=== PATIENT | female | born 1950 | race Two or more races ===

== ENCOUNTER 2024-01-28 11:13 | Inpatient (IN) | payer MEDICARE, OTHER ==
[~2024-01-28] VITALS: Ht 154.9 cm; Wt 54.4 kg
[2024-01-28 11:57] LABS: BASOPHILS % (AUTO) 0.4 % (0.0-2.0); EOSINOPHILS % (AUTO) 0.9 % (0.0-6.0); HEMATOCRIT 35 % (33-45); HEMOGLOBIN 11.5 g/dL (11.5-14.8); LYMPHOCYTES # (AUTO) 1.3 K/uL (0.8-4.8); LYMPHOCYTES % (AUTO) 28.8 % (20.0-44.0); MEAN CORPUSCULAR HEMOGLOBIN 32 PG (26.0-33.0); MEAN CORPUSCULAR HGB CONC 33 g/dl (31.0-36.0); MEAN CORPUSCULAR VOLUME 96 fL (82-100); MONOCYTES % (AUTO) 21.5 % (2.0-12.0); NEUTROPHILS # (AUTO) 2.2 K/uL (1.8-8.9); NEUTROPHILS % (AUTO) 48.4 % (43.0-81.0); PLATELET COUNT (AUTO) 224 K/uL (150-450); RED CELL DISTRIBUTION WIDTH 14.4 % (11.5-15.0); WHITE BLOOD COUNT (AUTO) 4.6 K/uL (4.3-11.0)
[2024-01-28 12:15] LABS: MAGNESIUM 2.2 mg/dL (1.8-2.4)
[2024-01-28 12:16] LABS: CALCIUM, SERUM 8.8 mg/dL (8.5-10.1); CARBON DIOXIDE 28 mmol/L (21-32); CHLORIDE 102 mmol/L (98-107); CREATININE 0.6 mg/dL (0.6-1.3); GLUCOSE 133 mg/dL (74-106); SODIUM SERUM 142 mmol/L (136-145); UREA NITROGEN, BLOOD 17 mg/dL (7-18)
[2024-01-28 12:21] LABS: ALANINE AMINOTRANSFERASE 15 U/L (12-78); ALBUMIN 2.3 g/dL (3.4-5.0); ALKALINE PHOSPHATASE 93 U/L (46-116); ASPARTATE AMINOTRANSFERASE 7 U/L (15-37); BILIRUBIN,DIRECT 0.1 mg/dL (0.0-0.2); BILIRUBIN,TOTAL 0.3 mg/dL (0.2-1.0)
[2024-01-28 12:22] LABS: INR 0.97 (0.91-1.10); PARTIAL THROMBOPLASTIN TIME 32.8 SEC (24.3-34.3); PROTHROMBIN TIME 10.3 SECS (9.2-11.1)
[2024-01-28 12:27] LABS: THYROID STIMULATING HORMONE 1.07 uIU/mL (0.358-3.74)
[2024-01-28 13:11] LABS: APPEARANCE,URINE SLIGHTLY CLOUDY (CLEAR); BILIRUBIN,URINE NEGATIVE (NEGATIVE); BLOOD, URINE NEGATIVE Ery/uL (NEGATIVE); COLOR,URINE DARK YELLOW (YELLOW); KETONES,URINE TRACE mg/dL (NEGATIVE); LEUKOCYTE ESTERASE ,URINE TRACE (NEGATIVE); NITRITE, URINE POSITIVE (NEGATIVE); PH,URINE 6.5 (5.0-8.0); PROTEIN,URINE TRACE mg/dl (NEGATIVE); UGLUCOSE NEGATIVE (NEGATIVE)
[2024-01-28 13:13] LABS: ADD URINE CULTURE YES; BACTERIA,URINE Few /HPF (None Seen); SQUAMOUS EPITHELIAL CELL,UR Moderate /HPF (None Seen)
[2024-01-28 13:16] LABS: BASOPHILS % (MANUAL) 0 % (0.0-2.0); EOSINOPHILS % (MANUAL) 0 % (0-4); LYMPHOCYTES % (MANUAL) 25 % (16-48); MONOCYTES % (MANUAL) 20 % (0-11.0); NEUTROPHILS % (MANUAL) 55 (42-76); PLATELET ESTIMATE ADEQUATE
[2024-01-28] MEDS ORDERED: MAGN400O6 PO (13:17)
[2024-01-28] MEDS ORDERED: ALEN70TA80 PO (13:17)
[2024-01-28] MEDS ORDERED: BUDE0.253 IH (13:17)
[2024-01-28] MEDS ORDERED: METF-442 PO (13:17)
[2024-01-28] MEDS ORDERED: ALBU0.633 IH (13:17)
[2024-01-28] MEDS ORDERED: TRAZ-182 PO (13:17)
[2024-01-28] MEDS ORDERED: DOCU100T2 PO (13:17)
[2024-01-28] MEDS ORDERED: CLOZ200T24 PO (13:17)
[2024-01-28] MEDS ORDERED: BISA10SU11 RC (13:17)
[2024-01-28] MEDS ORDERED: ATOR80TA PO (13:17)
[2024-01-28] MEDS ORDERED: DIVA-78 PO (13:17)
[2024-01-28] MEDS ORDERED: METO25TA4 PO (13:17)
[2024-01-28] MEDS ORDERED: BENZ1TAB7 PO (13:17)
[2024-01-28] MEDS ORDERED: ASPI-1169 PO (13:17)
[2024-01-28] MEDS ORDERED: ACET-868 PO (13:17)
[2024-01-28] MEDS ORDERED: BUDESONIDE RESPULE INH 0.25 MG/2 ML AMPUL.NEB IH PRN (14:00)
[2024-01-28] MEDS ORDERED: ZOLPIDEM TARTRATE 5 MG TABLET PO PRN (14:00)
[2024-01-28] MEDS ORDERED: DEXTROSE 50%-WATER 50 ML DISP.SYRIN IV PRN (14:00)
[2024-01-28] MEDS ORDERED: ONDANSETRON HCL/PF 4 MG/2 ML VIAL IVP PRN (14:00)
[2024-01-28] MEDS ORDERED: MAG HYDROX/AL HYDROX/SIMETH 30 ML UDC PO PRN (14:00)
[2024-01-28] MEDS ORDERED: ACETAMINOPHEN 325 MG TABLET PO PRN (14:00)
[2024-01-28] MEDS ORDERED: ALBUTEROL SULFATE IH PRN (14:00)
[2024-01-28] MEDS ORDERED: Z GUARD REMEDY 4 OZ OINT TP PRN (14:00)
[2024-01-28] MEDS ORDERED: BISACODYL SUPP (10 MG) 10 MG/SUPP.RECT SUPP.RECT RC PRN (14:00)
[2024-01-28] MEDS ORDERED: MAGNESIUM HYDROXIDE 30 ML UDC PO PRN ×2 (14:00)
[2024-01-28] MEDS ORDERED: ALBUTEROL FS 2.5 MG/3 ML VIAL.NEB NEB PRN (14:30)
[2024-01-28] MEDS ORDERED: CEFTRIAXONE 1GM BAG (ER ONLY) 50 ML IV ONE (14:35)
[2024-01-28] MEDS: CEFTRIAXONE 1GM BAG (ER ONLY) 1 GM/50 ML PIGGYBACK IV ONE (14:44)
[2024-01-28 16:00] VITALS: BP 136/76; TEMP 98.8; O2SAT 95
[2024-01-28] MEDS: METOPROLOL SUCCINATE 25 MG TAB.SR.24H PO SCH (17:57)
[2024-01-28] MEDS: IV NS 0.9% 1,000 ML IV PRN (17:57)
[2024-01-28] MEDS: DOCUSATE SODIUM 100 MG CAPSULE PO SCH (17:58)
[2024-01-28] MEDS: BENZTROPINE MESYLATE (1 MG) 1 MG TABLET PO SCH (17:58)
[2024-01-28] MEDS: BLOOD SUGAR DIAGNOSTIC 1 EACH STRIP VI SCH (17:58)
[2024-01-28] MEDS: INSULIN REGULAR, HUMAN 100 UNIT/ML 3 ML VIAL SQ PRN (17:59)
[2024-01-28 20:00] VITALS: BP 125/55; TEMP 99; O2SAT 93
[2024-01-28 20:05] VITALS: BP 125/55; TEMP 99; O2SAT 93
[2024-01-28] MEDS: DIVALPROEX SODIUM 500 MG TABLET.DR PO SCH (21:02)
[2024-01-28] MEDS: CLOZAPINE 100 MG TABLET PO SCH (21:05)
[2024-01-28] MEDS: TRAZODONE 50 MG TABLET PO SCH (21:06)
[2024-01-28] MEDS: *INSULIN REGULAR(HUMULIN R)HUM 100 UNIT/ML VIAL SQ PRN (21:20)
[2024-01-29] VITALS (9 sets, daily range): BP systolic 96–140; BP diastolic 53–79; TEMP 97.5–98.4; O2SAT 92–100
[2024-01-29 06:50] LABS: BASOPHILS % (AUTO) 0.3 % (0.0-2.0); EOSINOPHILS # (AUTO) 0.1 K/uL (0.0-0.7); EOSINOPHILS % (AUTO) 1.7 % (0.0-6.0); HEMATOCRIT 31 % (33-45); HEMOGLOBIN 10.5 g/dL (11.5-14.8); LYMPHOCYTES # (AUTO) 1.6 K/uL (0.8-4.8); LYMPHOCYTES % (AUTO) 29.5 % (20.0-44.0); MEAN CORPUSCULAR HEMOGLOBIN 33 PG (26.0-33.0); MEAN CORPUSCULAR HGB CONC 34 g/dl (31.0-36.0); MEAN CORPUSCULAR VOLUME 97 fL (82-100); MONOCYTES # (AUTO) 1.2 K/uL (0.1-1.30); MONOCYTES % (AUTO) 20.9 % (2.0-12.0); NEUTROPHILS # (AUTO) 2.6 K/uL (1.8-8.9); NEUTROPHILS % (AUTO) 47.6 % (43.0-81.0); PLATELET COUNT (AUTO) 215 K/uL (150-450); RED BLOOD CELL COUNT(AUTO) 3.23 MIL/uL (4.0-5.2); RED CELL DISTRIBUTION WIDTH 14.4 % (11.5-15.0); WHITE BLOOD COUNT (AUTO) 5.5 K/uL (4.3-11.0)
[2024-01-29 07:30] LABS: CARBON DIOXIDE 30 mmol/L (21-32); CHLORIDE 108 mmol/L (98-107); CREATININE 0.5 mg/dL (0.6-1.3); GLUCOSE 144 mg/dL (74-106); PHOSPHORUS 3.1 mg/dL (2.5-4.9); SODIUM SERUM 144 mmol/L (136-145); UREA NITROGEN, BLOOD 14 mg/dL (7-18)
[2024-01-29] MEDS: ASPIRIN 81 MG TAB.CHEW PO SCH (08:27)
[2024-01-29 08:36] LABS: BAND % (MANUAL) 4 % (0.0-5.0); LYMPHOCYTES % (MANUAL) 36 % (16-48); METAMYELOCYTES % 1 % (0-0); MONOCYTES % (MANUAL) 12 % (0-11.0); NEUTROPHILS % (MANUAL) 47 (42-76); PLATELET ESTIMATE ADEQUATE
[2024-01-29] MEDS: CEFTRIAXONE 1 G in IV D5W 50 ML IV SCH (14:06)
[2024-01-30] VITALS (8 sets, daily range): BP systolic 114–160; BP diastolic 55–81; TEMP 97.5–209.1; O2SAT 94–96
[2024-01-30 11:52] LABS: CREATINE KINASE, TOTAL 30 U/L (26-192)
[2024-01-31 04:17] VITALS: BP 125/55; TEMP 97.1; O2SAT 95
[2024-01-31 08:00] VITALS: BP 164/79; TEMP 99.3; O2SAT 97
[2024-01-31 08:29] VITALS: BP 164/79
[2024-01-31] MEDS ORDERED: CEPH-570 PO (09:35)
[2024-01-31 10:12] LABS: FOLIC ACID 16.5 ng/mL (>3.0)
== END 2024-01-31 13:30 | DRG 640 ==
LOC: ER 11:34 → TELE 16:46 → MED 01-30 13:50
PROVIDERS: ADMIT Internal Medicine; ATTEND Internal Medicine
DX: E86.0 Dehydration (principal); G93.41 Metabolic encephalopathy; E44.0 Moderate protein-calorie malnutrition; N39.0 Urinary tract infection, site not specified; R62.7 Adult failure to thrive; E11.9 Type 2 diabetes mellitus without complications; E78.5 Hyperlipidemia, unspecified; G40.909 Epilepsy, unspecified, not intractable, without status epilepticus; F25.9 Schizoaffective disorder, unspecified; I10 Essential (primary) hypertension; I25.2 Old myocardial infarction; J45.909 Unspecified asthma, uncomplicated; J44.9 Chronic obstructive pulmonary disease, unspecified; M81.0 Age-related osteoporosis without current pathological fracture; Z79.84 Long term (current) use of oral hypoglycemic drugs; Z79.82 Long term (current) use of aspirin; Z79.899 Other long term (current) drug therapy; Z79.83 Long term (current) use of bisphosphonates; F29 Unspecified psychosis not due to a substance or known physiological condition; E88.09 Other disorders of plasma-protein metabolism, not elsewhere classified; I25.10 Atherosclerotic heart disease of native coronary artery without angina pectoris; B96.89 Other specified bacterial agents as the cause of diseases classified elsewhere
CPT/HCPCS: 36415; 70450-TC; 71045-TC; 80048-TC; 80076-TC; 80164-TC; 81001; 82550-TC; 82607-TC; 82962-TC; 83735-TC; 83921; 84100-TC; 84443-TC; 84484-TC; 85025-TC; 85730-TC; 87040-TC; 87081-TC; 87086-TC; 97110-TC; 97116-TC; 97530-TC; G0378; J0696; J1815; J7030; J7060